=== PATIENT | male | born 2000 | race Caucasian/White ===

== ENCOUNTER 2023-07-18 20:14 | Observation (INO) ==
[2023-07-18 21:01] LABS: Hematocrit 39.9 % (38-53); Hemoglobin 13.8 g/dL (13.2-16.3); Mean Corpuscular Hemoglobin 30.3 pg (27-33); Mean Corpuscular Hgb Conc 34.5 g/dL (31-36); Mean Corpuscular Volume 87.9 fL (80-97); Mean Platelet Volume 7.8 fL (7.5-11.2); Platelet Count 249 10^3/uL (150-450); Red Blood Count 4.54 10^6/uL (4.06-5.63); Red Cell Distribution Width 13.8 % (12-17); White Blood Count 12.8 10^3/uL (3.6-10.2)
[2023-07-18 21:20] LABS: Albumin 4.3 g/dL (3.2-5.2); Anion Gap 6 mmol/L (2-16); CO2 Carbon Dioxide 31 mmol/L (22-32); Calcium 9.4 mg/dL (8.6-10.3); Chloride 101 mmol/L (101-111); Potassium 4.2 mmol/L (3.5-5.0); Sodium 138 mmol/L (135-145)
[2023-07-18 21:22] LABS: High Sens Troponin Baseline < 3 pg/mL (<20)
[2023-07-18 21:26] LABS: ALT 20 U/L (7-52); AST 19 U/L (13-39); Albumin/Globulin Ratio 1.7 (1-3); Alkaline Phosphatase 64 U/L (35-149); Blood Urea Nitrogen 13 mg/dL (6-24); Creatinine, Serum 0.83 mg/dL (0.67-1.17); Globulin 2.6 g/dL (2-4); Glucose 115 mg/dL (70-100); Total Protein 6.9 g/dL (6.4-8.9); eGFR CKD-EPI 126.1 (>60)
[2023-07-18 21:34] LABS: ABS Eosinophils 0.1 10^3/uL (0.0-0.5); ABS Lymphocytes 1.3 10^3/uL (1.0-4.8); ABS Monocytes 2.2 10^3/uL (0.0-1.1); ABS Neutrophils 9.2 10^3/uL (1.5-7.6); ABS Nucleated RBC 0.01 10^3/ul; Eosinophil % 0.7 %; Lymphocyte % 10.3 %; Nucleated Red Blood Cells % 0.1 /100 WBC (0.0-0.4)
[2023-07-18 22:21] LABS: INR 1.25 (0.83-1.13)
[2023-07-18] MEDS ORDERED: Lactated Ringers 1000 ml BAG 1,000 ML IV ONE (22:47)
[2023-07-18] MEDS ORDERED: Morphine 4 MG/ML VIAL (1 ml) IV ONE (22:47)
[2023-07-19] MEDS ORDERED: Acetaminophen IV 1 GM/100ML 1,000 MG/100 ML BAG IV PRN (01:40)
[2023-07-19] MEDS ORDERED: Morphine 2 MG/ML SYRINGE IV PRN ×2 (01:42)
[2023-07-19 07:05] LABS: Hematocrit 35.5 % (38-53); Hemoglobin 12.2 g/dL (13.2-16.3); Mean Corpuscular Hemoglobin 30.3 pg (27-33); Mean Corpuscular Hgb Conc 34.5 g/dL (31-36); Mean Corpuscular Volume 88.1 fL (80-97); Mean Platelet Volume 7.7 fL (7.5-11.2); Platelet Count 219 10^3/uL (150-450); Red Blood Count 4.04 10^6/uL (4.06-5.63); Red Cell Distribution Width 13.6 % (12-17); White Blood Count 12.2 10^3/uL (3.6-10.2)
[2023-07-19 07:08] LABS: ABS Lymphocytes 1.3 10^3/uL (1.0-4.8); ABS Neutrophils 8.9 10^3/uL (1.5-7.6); ABS Nucleated RBC 0.01 10^3/ul; Eosinophil % 0.2 %; Lymphocyte % 10.7 %
[2023-07-19 07:30] LABS: Creatinine, Serum 0.75 mg/dL (0.67-1.17); Potassium 4.4 mmol/L (3.5-5.0)
[2023-07-19 08:11] LABS: TSH Ultra Thyroid Stim Horm 0.64 mcIU/mL (0.34-5.60)
[2023-07-19 12:30] LABS: High Sensitivity Troponin 3 Hr 4 pg/mL (<20)
[2023-07-19] MEDS: Amphetamine/Dextroam ER 10(NF) 10 mg CAP.ER PO SCH ×2 (13:09→13:41)
[2023-07-20] MEDS ORDERED: Ondansetron ODT 4 mg TAB 4 MG TAB SL PRN (01:29)
[2023-07-20 05:51] LABS: Hematocrit 36.7 % (38-53); Hemoglobin 12.8 g/dL (13.2-16.3); Mean Corpuscular Hemoglobin 30.6 pg (27-33); Mean Corpuscular Hgb Conc 34.8 g/dL (31-36); Mean Corpuscular Volume 87.8 fL (80-97); Mean Platelet Volume 7.5 fL (7.5-11.2); Platelet Count 220 10^3/uL (150-450); Red Blood Count 4.18 10^6/uL (4.06-5.63); Red Cell Distribution Width 13.5 % (12-17)
[2023-07-20 05:55] LABS: ABS Eosinophils 0.1 10^3/uL (0.0-0.5); ABS Lymphocytes 1.3 10^3/uL (1.0-4.8); ABS Monocytes 1.9 10^3/uL (0.0-1.1); ABS Neutrophils 7.8 10^3/uL (1.5-7.6); Eosinophil % 0.9 %; Lymphocyte % 11.4 %
[2023-07-20 06:06] LABS: Creatinine, Serum 0.78 mg/dL (0.67-1.17); Magnesium 1.9 mg/dL (1.9-2.7); Potassium 4.2 mmol/L (3.5-5.0); eGFR CKD-EPI 128.5 (>60)
[2023-07-20] MEDS: Amphetamine/Dextroam ER 10(NF) 10 mg CAP.ER PO SCH (09:33)
[2023-07-20 13:42] VITALS: BP 108/68
[2023-07-22 15:05] LABS: EBV Capsid Ag IgG Ab Negative (Negative); EBV Capsid Ag IgM Ab Negative (Negative); Epstein-Barr Nuclear Antigen Negative (Negative)
== END 2023-07-20 15:15 | disposition home or self-care (01) ==
LOC: EDHOLD 20:14 → ED 20:14 → SUATTDRO 23:51 → SSU 07-19 10:16
PROVIDERS: ADMIT Internal Medicine; ATTEND Internal Medicine